=== PATIENT | male | born 1990 | race African-American/Black ===

== ENCOUNTER 2019-10-03 22:13 | Emergency (ER) | payer MEDICAID, OTHER ==
[~2019-10-03] VITALS: Ht 170.2 cm; Wt 80.0 kg
[2019-10-03 22:26] VITALS: BP 143/91
--- NOTE | 2019-10-03 22:40 | NUR ---
xray in room now
[2019-10-03] MEDS ORDERED: naproxen 500mg tablet PO ONE (22:50)
[2019-10-03] MEDS ORDERED: TETanus/Pertussis (Acell)/Diphther VAC/PF (Tdap-Adult) 0.5ml syringe IMVAC ONE (22:50)
[2019-10-03] MEDS ORDERED: HYDROcodone/acetaminophen 10/325mg tab PO ONE (22:50)
== END 2019-10-03 23:10 | disposition home or self-care (01) ==
LOC: ER 22:14
DX: S80.01XA Contusion of right knee, initial encounter (principal); G89.29 Other chronic pain; V89.2XXA Person injured in unspecified motor-vehicle accident, traffic, initial encounter; Y93.89 Activity, other specified; Y92.410 Unspecified street and highway as the place of occurrence of the external cause; Y99.8 Other external cause status
CPT/HCPCS: 73590; 90471; 90715; 99283

== ENCOUNTER 2021-08-20 06:19 | Emergency (ER) | payer MEDICARE ==
[~2021-08-20] VITALS: Ht 167.6 cm; Wt 86.0 kg
[2021-08-20 06:32] VITALS: BP 149/87
--- NOTE | 2021-08-20 07:53 | NUR ---
ok not to order acs protocol for now per Dr. Enriquez.
[2021-08-20 08:45] LABS: BASOPHILS # (AUTO) 0.1 X10'3 (0-0.2); BASOPHILS % (AUTO) 1.5 % (0-1); EOSINOPHILS % (AUTO) 0.1 % (0-6); HEMATOCRIT 39.7 % (42.0-52.0); HEMOGLOBIN 13.6 g/dl (14.0-17.9); LYMPHOCYTES # (AUTO) 1.6 X10'3 (1.1-4.8); MEAN CORPUSCULAR HEMOGLOBIN 29.5 PG (27.0-31.0); MEAN CORPUSCULAR HGB CONC 34.3 g/dL (33.0-36.5); MEAN CORPUSCULAR VOLUME 86.1 FL (78-98); MEAN PLATELET VOLUME 8.7 FL (7.4-10.4); MONOCYTES # (AUTO) 0.8 X10'3 (0-0.9); MONOCYTES % (AUTO) 17.5 % (2-12); NEUTROPHILS # (AUTO) 2.2 X10'3 (1.8-7.7); NEUTROPHILS % (AUTO) 46.9 % (42-75); PLATELET COUNT 220 X10'3 (140-440); RED BLOOD COUNT 4.61 X10'6 (4.70-6.10); RED CELL DISTRIBUTION WIDTH 13.4 % (11.5-14.5); WHITE BLOOD COUNT 4.7 X10'3 (4.5-11.0)
[2021-08-20 08:58] LABS: ALANINE AMINOTRANSFERASE 29 U/L (12-78); ALBUMIN 3.8 G/DL (3.4-5.0); ALBUMIN/GLOBULIN RATIO 1.1 (1.1-1.5); ALKALINE PHOSPHATASE 60 IU/L (46-116); ANION GAP 11 (8-16); ASPARTATE AMINO TRANSFERASE 36 U/L (10-37); BILIRUBIN,TOTAL 0.6 MG/DL (0.1-1.0); BLOOD UREA NITROGEN 12 MG/DL (7-18); BUN/CREATININE RATIO 11.2 (5.4-32.0); CHLORIDE 106 MMOL/L (99-107); CREATININE 1.07 MG/DL (0.60-1.10); GLUCOSE 92 MG/DL (70-104); POTASSIUM 3.5 MMOL/L (3.5-5.1); SODIUM 141 MMOL/L (135-145); TOTAL CARBON DIOXIDE 23.9 MMOL/L (24-32); TOTAL PROTEIN 7.2 G/DL (6.4-8.2); eGFR > 90 ML/MIN
[2021-08-20] MEDS ORDERED: ketorolac trometh. 30mg/ml inj. IM ONE (09:15)
== END 2021-08-20 09:32 | disposition home or self-care (01) ==
LOC: ER 06:19
DX: R07.89 Other chest pain (principal); G89.29 Other chronic pain; F12.90 Cannabis use, unspecified, uncomplicated; Z72.89 Other problems related to lifestyle
CPT/HCPCS: 36415; 71045; 80053; 84484; 85025; 93005; 96372; 99285; J1885

== ENCOUNTER 2021-10-25 11:37 | Outpatient (CLI) | payer MEDICARE | END 2021-10-25 23:59 | disposition home or self-care (01) | LOC: RAD 11:37 | PROVIDERS: ATTEND Nurse Practitioner | DX: M51.36 Other intervertebral disc degeneration, lumbar region (principal); R20.0 Anesthesia of skin; R20.2 Paresthesia of skin | CPT/HCPCS: 72141; 72146; 72148 ==

== ENCOUNTER 2022-07-26 11:25 | Emergency (ER) | payer MEDICARE ==
[~2022-07-26] VITALS: Ht 168.9 cm; Wt 83.6 kg
[2022-07-26 12:13] VITALS: BP 145/87
[2022-07-26] MEDS ORDERED: AMOX-117 PO (18:28)
[2022-07-26] MEDS ORDERED: ALBU6.7H14 INH (18:28)
[2022-07-26] MEDS ORDERED: PRED20TA PO (18:28)
== END 2022-07-26 18:39 | disposition home or self-care (01) ==
LOC: ER 11:25
DX: J20.9 Acute bronchitis, unspecified (principal); Z20.822 Contact with and (suspected) exposure to COVID-19; R05.9 Cough, unspecified; R53.83 Other fatigue; R11.0 Nausea; G89.29 Other chronic pain; F12.90 Cannabis use, unspecified, uncomplicated; Z72.89 Other problems related to lifestyle; Z79.2 Long term (current) use of antibiotics; Z79.899 Other long term (current) drug therapy
CPT/HCPCS: 71045; 87502; 87503; 87635; 99284; C9803

== ENCOUNTER 2023-03-05 22:05 | Emergency (ER) | payer MEDICARE ==
[~2023-03-05] VITALS: Ht 167.6 cm; Wt 81.8 kg
[~2023-03-05 22:05] MED LIST: ALBU6.7H14 INH
[2023-03-05 22:31] VITALS: BP 138/100
[2023-03-05 23:02] LABS: BASOPHILS # (AUTO) 0.2 X10'3 (0-0.2); BASOPHILS % (AUTO) 1.9 % (0-1); EOSINOPHILS # (AUTO) 0.1 X10'3 (0-0.9); HEMATOCRIT 45.3 % (42.0-52.0); HEMOGLOBIN 15.1 g/dl (14.0-17.9); LYMPHOCYTES # (AUTO) 2.6 X10'3 (1.1-4.8); LYMPHOCYTES % (AUTO) 26.4 % (21-51); MEAN CORPUSCULAR HEMOGLOBIN 28.2 PG (27.0-31.0); MEAN CORPUSCULAR HGB CONC 33.4 g/dL (33.0-36.5); MEAN CORPUSCULAR VOLUME 84.3 FL (78-98); MEAN PLATELET VOLUME 8.5 FL (7.4-10.4); MONOCYTES # (AUTO) 0.8 X10'3 (0-0.9); MONOCYTES % (AUTO) 7.8 % (2-12); NEUTROPHILS # (AUTO) 6.2 X10'3 (1.8-7.7); NEUTROPHILS % (AUTO) 62.9 % (42-75); PLATELET COUNT 343 X10'3 (140-440); RED BLOOD COUNT 5.38 X10'6 (4.70-6.10); RED CELL DISTRIBUTION WIDTH 12.6 % (11.5-14.5); WHITE BLOOD COUNT 9.9 X10'3 (4.5-11.0)
[2023-03-05 23:12] LABS: ALANINE AMINOTRANSFERASE 32 U/L (12-78); ALBUMIN 3.9 G/DL (3.4-5.0); ALBUMIN/GLOBULIN RATIO 0.8 (1.1-1.5); ALKALINE PHOSPHATASE 73 IU/L (46-116); ANION GAP 11 (8-16); ASPARTATE AMINO TRANSFERASE 25 U/L (10-37); BILIRUBIN,TOTAL 1.2 MG/DL (0.1-1.0); BLOOD UREA NITROGEN 14 MG/DL (7-18); CALCIUM 9.6 MG/DL (8.5-10.1); CHLORIDE 97 MMOL/L (99-107); GLUCOSE 103 MG/DL (70-104); LIPASE 233 U/L (73-393); POTASSIUM 3.3 MMOL/L (3.5-5.1); SODIUM 135 MMOL/L (135-145); TOTAL PROTEIN 8.8 G/DL (6.4-8.2)
[2023-03-05 23:44] LABS: BUN/CREATININE RATIO 11.1 (10.0-20.0); CREATININE 1.26 MG/DL (0.60-1.10); eGFR 79 ML/MIN
[2023-03-06] MEDS ORDERED: famotidine 20mg tablet PO ONE (00:50)
[2023-03-06] MEDS ORDERED: mag hydrox/Alum hydrox/simeth 30ml oral suspension PO ONE (00:50)
[2023-03-06] MEDS ORDERED: FAMO-128 PO (01:56)
[2023-03-06] MEDS ORDERED: ONDA4TAB12 PO (01:56)
== END 2023-03-06 02:17 | disposition home or self-care (01) ==
LOC: ER 22:06
DX: R19.7 Diarrhea, unspecified (principal); R10.13 Epigastric pain; F12.90 Cannabis use, unspecified, uncomplicated; Z79.899 Other long term (current) drug therapy
CPT/HCPCS: 36415; 80053; 83690; 85025; 99284

== ENCOUNTER 2024-11-29 02:44 | Emergency (ER) | payer MEDICARE ==
[~2024-11-29] VITALS: Ht 167.6 cm; Wt 73.6 kg
[~2024-11-29 02:44] MED LIST changes: +FAMO-128 PO; +ONDA-243 PO
[2024-11-29] MEDS: ketorolac trometh 15mg/ml vial 15 MG/ML ML IV ONE (04:29)
[2024-11-29 04:42] LABS: BASOPHILS # (AUTO) 0.1 X10'3 (0-0.2); BASOPHILS % (AUTO) 1.4 % (0-1); EOSINOPHILS # (AUTO) 0.3 X10'3 (0-0.9); EOSINOPHILS % (AUTO) 2.9 % (0-6); HEMOGLOBIN 13.8 g/dl (14.0-17.9); LYMPHOCYTES # (AUTO) 3.1 X10'3 (1.1-4.8); LYMPHOCYTES % (AUTO) 32.2 % (21-51); MEAN CORPUSCULAR HEMOGLOBIN 29.5 PG (27.0-31.0); MEAN CORPUSCULAR HGB CONC 34.4 g/dL (33.0-36.5); MEAN CORPUSCULAR VOLUME 85.6 FL (78-98); MEAN PLATELET VOLUME 8.5 FL (7.4-10.4); MONOCYTES # (AUTO) 0.5 X10'3 (0-0.9); MONOCYTES % (AUTO) 5.5 % (2-12); NEUTROPHILS # (AUTO) 5.6 X10'3 (1.8-7.7); PLATELET COUNT 246 X10'3 (140-440); RED BLOOD COUNT 4.67 X10'6 (4.70-6.10); RED CELL DISTRIBUTION WIDTH 13.6 % (11.5-14.5); WHITE BLOOD COUNT 9.6 X10'3 (4.5-11.0)
[2024-11-29] MEDS: morphine 4 MG/ML inj SYRINge IV ONE (04:44)
[2024-11-29] MEDS: ondansetron/PF 4mg/2ml inj IV ONE (04:47)
[2024-11-29 05:04] VITALS: BP 146/75; PULSE 62; O2SAT 99
[2024-11-29 05:05] LABS: ALBUMIN 4.2 G/DL (3.4-5.0); ANION GAP 6 (8-16); BLOOD UREA NITROGEN 7 MG/DL (7-18); BUN/CREATININE RATIO 6.9 (10.0-20.0); CALCIUM 9.1 MG/DL (8.5-10.1); CHLORIDE 107 MMOL/L (99-107); CREATININE 1.02 MG/DL (0.60-1.10); GLUCOSE 95 MG/DL (70-104); MAGNESIUM 1.9 MG/DL (1.5-2.4); POTASSIUM 3.8 MMOL/L (3.5-5.1); PRO BRAIN NATRIURETIC PEPTIDE < 30 PG/ML (0-125); SODIUM 141 MMOL/L (135-145); TOTAL CARBON DIOXIDE 27.6 MMOL/L (24-32); eCRCL 90 ML/MIN; eGFR > 90 ML/MIN
[2024-11-29 05:06] LABS: D-DIMER < 0.19 MG/L FEU (0-0.50)
[2024-11-29 05:13] VITALS: RESP 20
[2024-11-29] MEDS: morphine 10mg/ml inj. IV ONE (05:13)
[2024-11-29] MEDS: LORazepam 1 MG tablet PO ONE (05:41)
[2024-11-29] MEDS ORDERED: IBUP-1986 PO (05:47)
[2024-11-29 05:50] VITALS: TEMP 97.6
[2024-11-29] MEDS ORDERED: CYCL-1 PO (05:57)
== END 2024-11-29 05:55 | disposition home or self-care (01) ==
LOC: ER 02:45
DX: R09.1 Pleurisy (principal); F12.90 Cannabis use, unspecified, uncomplicated
CPT/HCPCS: 36415; 71045; 80048; 83735; 83880; 84484; 85025; 85379; 93005; 96365; 96375; 99285; J1885; J2270; J2405; J2274

== ENCOUNTER 2025-05-28 21:26 | Emergency (ER) | payer MEDICARE ==
[~2025-05-28] VITALS: Ht 167.6 cm; Wt 81.8 kg
[~2025-05-28 21:26] MED LIST changes: +CYCL-1 PO; +IBUP-1986 PO
--- NOTE | 2025-05-28 21:36 | ELECTROCARDIOGRAPH REPORT ---
[facility] Test Date: 2025-05-28 Test Time: 21:34:21 Pat Name: YEVGENIY FLOYD Department: EMERGENCY ROOM Room: Gender: M Juvenile Counselor: : 1990 Requested By: HENRIETTA HIDALGO Order Number: [id number] Reading MD: Measurements Intervals [place] Rate: 77 P: 54 TN: 133 QRS: 22 QRSD: 88 T: 32 QT: 360 QTc: 408 Interpretive Statements Sinus rhythm Probable left atrial enlargement Please click the below link to view image of tracing.
[2025-05-28 21:49] LABS: MEAN PLATELET VOLUME 8.5 FL (7.4-10.4); RED CELL DISTRIBUTION WIDTH 13.9 % (11.5-14.5)
--- NOTE | 2025-05-28 22:01 | RADIOLOGY REPORT ---
CLINICAL HISTORY: CP TECHNIQUE: Single view of the chest was obtained. COMPARISON: DI CHEST,SINGLE VIEW on DOS: 11/29/24, CHEST,SINGLE VIEW on DOS: 07/26/22, CHEST,SINGLE VIEW on DOS: 08/20/21 FINDINGS: The heart size and pulmonary vasculature are normal. The lungs are clear. IMPRESSION: NO ACUTE CARDIOPULMONARY PROCESS.
[2025-05-28 22:08] LABS: CREATININE 1.20 MG/DL (0.60-1.10); TOTAL CARBON DIOXIDE 25.3 MMOL/L (24-32); eCRCL 77 ML/MIN; eGFR 83 ML/MIN
[2025-05-28 22:09] LABS: PRO BRAIN NATRIURETIC PEPTIDE < 30 PG/ML (0-125)
--- NOTE | 2025-05-29 00:49 | Physician Documentation ---
History of Present Illness ~ Chief Complaint: Chest Pain Stated Complaint: CHEST PAIN Time Seen by MD: 00:42 Primary Medical Doctor: [facility] Mode of Arrival: POV, Ambulatory HPI Patient presents to the emergency room with left-sided chest pain since yesterday morning. Patient's pain that has sharp in nature exacerbated with deep breaths. He does not smoke and denies any history of blood pressure cholesterol or diabetes. Denies one-sided leg pain. Medication Reconciliation Allergies: Coded Allergies: No Known Allergies (Unverified , 05/28/25) Scheduled Albuterol Sulfate (Proventil Hfa), 2 PUFFS INH Q6H Famotidine (Pepcid), 1 TAB PO Q12H Ibuprofen (Ibuprofen), 1 TAB PO Q8H Scheduled PRN Cyclobenzaprine* (Cyclobenzaprine*), 1 TAB PO Q8H PRN for moderate or severe pain 4-10 ONDANSETRON ODT 4mg tablet (Ondansetron Odt), 1 TABLET PO Q6H PRN for nausea/vomiting Past Medical History Past Medical History: Chronic Back Pain Past Surgical History: no surgical history Alcohol Use: Occasionally Drug Use: marijuana Lives In: Home Occupation: employed Review of Systems ROS All review of systems negative except as per HPI Physical Exam Vital Signs: Temperature: 98.2, Source: Temporal, Heart Rate: 52, Respiratory Rate: 16, BP: 145/95, Pulse Oximetry: 100, Weight: 81.820 Oxygen Flow Rate: 0 Physical Exam General: Patient is sleeping, easily arousable in no acute distress Head: Normocephalic and atraumatic. Eyes: Conjunctival normal. EOMI. PERRL. ENT: Mucous membranes moist. Neck: Supple, trachea is midline. Chest: Clear to auscultation bilaterally without rales, rhonchi, or wheezes. There is no accessory muscle use or retractions. Cardiac: RRR without murmurs, gallops, or rubs. Abd: Soft, nondistended, nontender, with normoactive bowel sounds. No guarding, rebound, or rigidity. Extremities: Normal strength. Normal range of motion. No deformities or edema. No calf tenderness to palpation Progress Results/Orders Results/Orders Orders - CURTIS STOREY MD Chest,Single View (05/28/25 21:39) Monitor (05/28/25 21:39) Saline Lock (05/28/25 21:39) Oxygen (05/28/25 21:39) Electrocardiogram (05/28/25 21:39) Hs Troponin I W Calculations (05/29/25 00:39) Completed Orders - CURTIS STOREY MD Stat Ekg (05/28/25 ) Chest,Single View (05/28/25 21:39) Cbc/Diff (05/28/25 21:39) BMP (05/28/25 21:39) PBNP (05/28/25 21:39) Hs Troponin I W Calculations (05/28/25 21:39) Hs Troponin I W Calculations (05/28/25 23:39) Vital Signs 05/28/25 05/28/25 05/29/25 21:36 23:40 00:00 Temp 98.2 Pulse 72 52 Resp 16 16 16 B/P (MAP) 166/104 145/95 (112) Pulse Ox 96 100 O2 Flow Rate 0 0 Laboratory Tests Test 05/28/25 21:40 05/28/25 23:29 White Blood Count 4.9 Red Blood Count 4.85 Hemoglobin 13.8 L Hematocrit 41.8 L Mean Corpuscular Volume 86.1 Mean Corpuscular Hemoglobin 28.5 Mean Corpuscular Hemoglobin Concent 33.1 Red Cell Distribution Width 13.9 Platelet Count 253 Mean Platelet Volume 8.5 Neutrophils (%) (Auto) 35.5 L Lymphocytes (%) (Auto) 50.5 Monocytes (%) (Auto) 10.4 Eosinophils (%) (Auto) 2.8 Basophils (%) (Auto) 0.8 Neutrophils # (Auto) 1.7 L Lymphocytes # (Auto) 2.5 Monocytes # (Auto) 0.5 Eosinophils # (Auto) 0.1 Basophils # (Auto) 0.0 CBC Comment Sodium Level 140 Potassium Level 3.7 Chloride Level 106 Carbon Dioxide Level 25.3 Anion Gap 9 Blood Urea Nitrogen 9 Creatinine 1.20 H Estimated GFR/1.73 m2 83 BUN/Creatinine Ratio 7.5 L Glucose Level 131 H Calcium Level 8.5 Troponin I High Sensitivity 5 5 Pro-B-Type Natriuretic Peptide < 30 Albumin 4.1 Chemistry Comments Troponin I High Sens Percent Delta 0 Troponin I Hi Sens Absolute Change 0 EKG/XRAY/CT/US/VASC/MRI EKG : Additional Comment EKG interpreted by myself shows time of 09/08/2033, rate 77, sinus rhythm, normal axis, no ST changes Chest X-Ray : Additional Comments Exam: CHEST,SINGLE VIEW CLINICAL HISTORY: CP TECHNIQUE: Single view of the chest was obtained. COMPARISON: DI CHEST,SINGLE VIEW on DOS: 11/29/24, CHEST,SINGLE VIEW on DOS: 07/26/22, CHEST,SINGLE VIEW on DOS: 08/20/21 FINDINGS: The heart size and pulmonary vasculature are normal. The lungs are clear. IMPRESSION: NO ACUTE CARDIOPULMONARY PROCESS. Medical Decision Making Findings Patient presents to the emergency room with left-sided chest pain. Differentials include but are not limited to ACS, pulmonary embolism, musculoskeletal pain, pleurisy, pneumothorax therefore emergent labs and imaging indicated. Chest x-ray is reassuring for no pneumothorax. Labs reassuring for negative troponins. He had not feel patient requires investigation into possible pulmonary embolism as that has no tachycardia, he is saturating 100% on room air with no calf tenderness to palpation. Unknown cause for patient's pleuritic chest pain. Conservative management discussed. Departure Disposition: HOME / SELF CARE / HOMELESS Impression: Primary Impression: Pleurisy Condition: Stable Discharge Instructions: Pleurisy, [id number], Nonspecific Chest Pain, Adult Referrals: NO PRIMARY CARE PROVIDER (PCP) Signature Scribe Signature: No scribe Attestation: The note accurately reflects work and decisions made by me.Curtis Storey MD 05/29/25 00:48 CURTIS STOREY MD May 29, 2025 00:49
[2025-05-29] MEDS: ibuprofen tablet 400 MG TABLET PO ONE (01:23)
[2025-05-29 01:27] VITALS: BP 135/84; PULSE 56; RESP 19; TEMP 98.2; O2SAT 95
== END 2025-05-29 01:30 | disposition home or self-care (01) ==
LOC: ER 21:27
DX: R09.1 Pleurisy (principal); G89.29 Other chronic pain; F12.90 Cannabis use, unspecified, uncomplicated; Z79.899 Other long term (current) drug therapy; Z72.89 Other problems related to lifestyle
CPT/HCPCS: 36415; 71045; 80048; 83880; 84484; 85025; 93005; 99285